=== PATIENT | female | born 1955 | race African-American/Black ===

== ENCOUNTER 2018-08-23 08:38 | Emergency (ER) | payer BC ==
[~2018-08-23] VITALS: Ht 162.6 cm; Wt 68.9 kg
--- NOTE | 2018-08-23 08:50 | NUR ---
PT AMBULATORY TO ROOM WITH STEADY GAIT.
--- NOTE | 2018-08-23 08:58 | NUR ---
63 Y/O FEMALE PRESENTS TO ED WITH C/O RECTAL PAIN AND BLEEDING. PER PATIENT "I'M FROM [place] [facility] AND I HAVE SOME SORES BY MY RECTUM. I DIDN'T TELL ANYONE BECAUSE I DIDN'T WANT TO RUIN A GIRLS WEEKEND. BUT THEY LEFT AND I WANT TO BE CHECKED. I'VE BEEN BLEEDING TOO, I THINK IT'S FROM THE SORES." NO ACUTE DISTRESS NOTED. PT PLACED ON CONT PULSE OX,NIBP. NO C/O N/V/D, TRAUMA, SYNCOPE, CP, SOB.
[2018-08-23 09:35] VITALS: BP 134/75
--- NOTE | 2018-08-23 09:35 | NUR ---
Patient/Caregiver given discharge instructions and they have confirmed that they understand the instructions. Patient ambulatory with steady gait. PT LEFT WITH ALL PERSONAL BELONGINGS.
== END 2018-08-23 10:08 | disposition home or self-care (01) ==
LOC: ED 09:35
DX: R10.2 Pelvic and perineal pain (principal); I10 Essential (primary) hypertension
CPT/HCPCS: 99283